=== PATIENT | female | born 1940 | race Caucasian/White ===

== ENCOUNTER 2020-06-03 05:42 | Day surgery (SDC) | payer MEDICARE ==
[~2020-06-03] VITALS: Ht 162.6 cm; Wt 64.0 kg
[2020-06-03] MEDS ORDERED: BUPIVACAINE/PF-EPI 0.5% 1:200K ONE ×2 (06:33→13:50)
[2020-06-03] MEDS ORDERED: LIDOCAINE 1%-EPI 1:100K, 20ML ONE ×2 (06:33→13:50)
[2020-06-03 08:10] VITALS: BP 125/79
[2020-06-03] MEDS ORDERED: POTASSIUM PO (08:34)
[2020-06-03] MEDS ORDERED: LEVO50TA PO (08:34)
[2020-06-03] MEDS ORDERED: MSM PO (08:34)
[2020-06-03] MEDS ORDERED: LOVA20TA2 PO (08:34)
[2020-06-03] MEDS ORDERED: CHOL10003 PO (08:34)
[2020-06-03] MEDS ORDERED: VIT1TABL32 PO (08:34)
[2020-06-03] MEDS ORDERED: ASPI-496 PO (08:34)
[2020-06-03] MEDS ORDERED: GLUCOSAMINE PO (08:34)
[2020-06-03] MEDS ORDERED: DOCU-180 PO (08:34)
[2020-06-03] MEDS ORDERED: CHONDROITIN PO (08:34)
[2020-06-03] MEDS ORDERED: CYAN25009 PO (08:34)
[2020-06-03] MEDS ORDERED: HYALURONIC ACID PO (08:34)
[2020-06-03] MEDS ORDERED: [UNRECOGNIZED DRUG - OTHER] PO (08:34)
[2020-06-03] MEDS ORDERED: CLOP75TA52 PO (08:34)
[2020-06-03] MEDS ORDERED: HYDR50TA3 PO (08:34)
[2020-06-03] MEDS ORDERED: LACTATED RINGERS 1,000 ML IV SCH (08:37)
[2020-06-03] MEDS ORDERED: HALOPERIDOL 5 MG/ML IV PRN (09:00)
[2020-06-03] MEDS ORDERED: EPHEDRINE 50 MG/ML, 1ML IM PRN (09:00)
[2020-06-03] MEDS ORDERED: DIAZEPAM 5 MG/ML, 2ML IVPush PRN (09:00)
[2020-06-03] MEDS ORDERED: FENTANYL PF 100 MCG/2ML IV PRN (09:00)
[2020-06-03] MEDS ORDERED: ONDANSETRON 2MG/ML, 2ML IVPush PRN (09:00)
[2020-06-03] MEDS ORDERED: MEPERIDINE/PF 25MG/0.5ML IVPush PRN (09:00)
[2020-06-03] MEDS ORDERED: ACETAMINOPHEN 325 MG TABLET PO PRN (09:00)
[2020-06-03] MEDS ORDERED: ALBUTEROL/IPRATROPIUM 2.5MG/0.5MG, 3 ML NPPB PRN (09:00)
[2020-06-03] MEDS ORDERED: EPHEDRINE 50 MG/ML, 1ML IVPush PRN (09:00)
[2020-06-03] MEDS ORDERED: METOCLOPRAMIDE 5 MG/ML, 2ML IVPush PRN (09:00)
[2020-06-03] MEDS ORDERED: hydrALAzine 20 MG/ML, 1ML IV PRN (09:00)
[2020-06-03] MEDS ORDERED: LABETALOL 5MG/ML, 20ML IV PRN (09:00)
[2020-06-03] MEDS ORDERED: HYDROcodone/APAP 7.5-325MG/15ML UDC PO PRN (09:00)
[2020-06-03] MEDS ORDERED: HYDROmorphone 1 MG/ML, 1ML INJ IVPush PRN (09:00)
[2020-06-03] MEDS ORDERED: MIDAZOLAM 1 MG/ML, 2ML IV PRN (09:00)
[2020-06-03] MEDS ORDERED: METHOCARBAMOL 1,000 MG in DEXTROSE 5% 100 ML IV ONE (09:00)
[2020-06-03] MEDS ORDERED: DIPHENHYDRAMINE 50 MG/ML, 1ML IVPush PRN (09:00)
[2020-06-03] MEDS ORDERED: OXYcodone 5 MG/5 ML ORAL.SOL UDC PO PRN (09:00)
[2020-06-03] MEDS ORDERED: LORazepam 2 MG/ML, 1ML IVPush PRN (09:00)
[2020-06-03] MEDS ORDERED: KETOROLAC 30 MG/1 ML IV PRN (09:00)
[2020-06-03] MEDS ORDERED: LIDOCAINE PATCH TP (09:02)
[2020-06-03] MEDS ORDERED: GABAPENTIN PO (09:02)
[2020-06-03] MEDS ORDERED: ACET-1600 PO (09:11)
[2020-06-03] MEDS ORDERED: NAPR250T6 PO (09:12)
[2020-06-03] MEDS ORDERED: CHLORHEXIDINE 15 ML UDC MM ONE (09:30)
[2020-06-03 12:09] LABS: MICROSCOPIC NOT IND
[2020-06-03] MEDS ORDERED: PROPOFOL 10 MG/ML, 20ML ONE (13:11)
[2020-06-03] MEDS ORDERED: LIDOCAINE-MPF 2% ,5ML ONE (13:11)
[2020-06-03] MEDS ORDERED: FENTANYL PF 100 MCG/2ML ONE (13:11)
[2020-06-03] MEDS ORDERED: ROCURONIUM 10MG/ML,5ML ONE (13:11)
[2020-06-03] MEDS ORDERED: GLYCOPYRROLATE 0.2MG/1ML, 5ML ONE (13:11)
[2020-06-03] MEDS ORDERED: DEXAMETHASONE 4 MG/ML, 1ML ONE (13:11)
[2020-06-03] MEDS ORDERED: MIDAZOLAM 1 MG/ML, 2ML ONE (13:12)
[2020-06-03] MEDS ORDERED: CEFAZOLIN 1,000 MG ONE (14:25)
[2020-06-03] MEDS ORDERED: PHENYLEPHRINE 10 MG/ML ONE (14:25)
[2020-06-03] MEDS ORDERED: OMNIPAQUE 180 MG/ML, 20ML VIAL ONE (15:21)
[2020-06-03] MEDS ORDERED: KETOROLAC 30 MG/1 ML ONE (15:43)
== END 2020-06-03 17:45 | disposition home or self-care (01) ==
LOC: OUT 05:42
PROVIDERS: ATTEND Orthopaedic Surgery Orthopaedic Surgery of the Spine
DX: S32.019A Unspecified fracture of first lumbar vertebra, initial encounter for closed fracture (principal); M54.5 Low back pain; I10 Essential (primary) hypertension; E78.5 Hyperlipidemia, unspecified; E03.9 Hypothyroidism, unspecified; Z79.82 Long term (current) use of aspirin; Z79.01 Long term (current) use of anticoagulants; Z79.02 Long term (current) use of antithrombotics/antiplatelets; Z79.890 Hormone replacement therapy; Z79.891 Long term (current) use of opiate analgesic; Z79.899 Other long term (current) drug therapy; Z88.5 Allergy status to narcotic agent; Z86.73 Personal history of transient ischemic attack (TIA), and cerebral infarction without residual deficits; Z90.710 Acquired absence of both cervix and uterus; Z90.49 Acquired absence of other specified parts of digestive tract; Z98.890 Other specified postprocedural states; X50.9XXA Other and unspecified overexertion or strenuous movements or postures, initial encounter; Y93.89 Activity, other specified; Y92.89 Other specified places as the place of occurrence of the external cause; Y99.8 Other external cause status
CPT/HCPCS: 22514; 72100; 81003; 88307; 88311; C1713; J0690; J1100; J1885; J2250; J2370; J2704; J2800; J3010; J3490; J7120; Q9965